=== PATIENT | female | born 1965 | race Caucasian/White ===

== ENCOUNTER 2017-06-29 14:30 | Emergency (ER) | payer BC ==
[~2017-06-29] VITALS: Ht 170.2 cm; Wt 65.8 kg
[~2017-06-29 14:30] MED LIST: CIPROFLOXACIN500 M1 PO; TAMSULOSIN HCL0.4 MG PO; ZOLOFT100 MG PO
[2017-06-29] MEDS ORDERED: IBUPROFEN 600600 M1 PO (14:39)
[2017-06-29] MEDS ORDERED: ROPINIROLE HCL2 M1 PO (14:39)
[2017-06-29] MEDS ORDERED: ACETAMINOPHEN325 M1 PO (14:39)
[2017-06-29 15:12] LABS: ABSOLUTE EOSINOPHILS 0.1 thou/uL (0.0-0.7); ABSOLUTE LYMPHOCYTES 1.6 thou/uL (0.8-5.3); ABSOLUTE MONOCYTES 0.3 thou/uL (0.0-1.2); ABSOLUTE NEUTROPHILS 4.8 thou/uL (1.6-8.1); BASOPHILS 0.2 %; HEMATOCRIT 38.7 % (37.0-47.0); HEMOGLOBIN 12.8 gm/dL (12.0-15.0); MCH 28.6 pg (26.0-34.0); MCHC 33.1 g/dL (28.0-37.0); MCV 86.2 fL (80.0-100.0); MONOCYTES 4.5 %; MPV 8.6 fl. (7.2-11.1); NUCLEATED RBCS 0 /100WBC; PLATELET COUNT* 227 thou/uL (150-400); POLYS 70.3 %; RBC 4.49 mil/uL (4.20-5.00); RDW-CV 13.8 % (10.5-14.5); WBC 6.8 thou/uL (4.0-11.0)
[2017-06-29 15:17] LABS: CALCIUM 8.7 mg/dL (8.5-10.1); CREATININE 0.8 mg/dL (0.6-1.3); POTASSIUM 3.5 mmol/L (3.5-5.1)
[2017-06-29 15:22] LABS: ALBUMIN 3.7 g/dL (3.4-5.0); TOTAL BILIRUBIN 0.3 mg/dL (<0.1-1.0); TOTAL PROTEIN 7.7 g/dL (6.4-8.2)
[2017-06-29] MEDS ORDERED: HYDROCODONE-AP1 EAC6 PO (15:52)
[2017-06-29] MEDS ORDERED: MEDROLDOSEPACK PO (16:01)
[2017-06-29 16:06] VITALS: BP 138/78
[2017-06-29 16:23] LABS: ESR (SEDRATE) 9 mm/hr (0-30)
== END 2017-06-29 16:07 | disposition home or self-care (01) ==
LOC: M.ERS 14:30
PROVIDERS: Physician Assistant
DX: M54.2 Cervicalgia (principal); R51 Headache; F41.9 Anxiety disorder, unspecified; Z88.8 Allergy status to other drugs, medicaments and biological substances

== ENCOUNTER 2017-08-04 01:33 | Emergency (ER) | payer BC ==
[~2017-08-04] VITALS: Ht 170.2 cm; Wt 65.8 kg
[~2017-08-04 01:33] MED LIST changes: +ACETAMINOPHEN325 M1 PO; +HYDROCODONE-AP1 EAC6 PO; +IBUPROFEN 600600 M1 PO; +MEDROLDOSEPACK PO; +ROPINIROLE HCL2 M1 PO
[2017-08-04] MEDS ORDERED: ZANAFLEX4 MG PO (01:41)
[2017-08-04] MEDS ORDERED: MOBIC7.5 MG PO (01:42)
[2017-08-04 02:03] LABS: CREATININE 0.9 mg/dL (0.6-1.3); POTASSIUM 4.1 mmol/L (3.5-5.1)
[2017-08-04 02:09] LABS: ABSOLUTE EOSINOPHILS 0.1 thou/uL (0.0-0.7); ABSOLUTE LYMPHOCYTES 2.5 thou/uL (0.8-5.3); ABSOLUTE MONOCYTES 0.6 thou/uL (0.0-1.2); ABSOLUTE NEUTROPHILS 4.5 thou/uL (1.6-8.1); BASOPHILS 0.6 %; EOSINOPHILS 0.9 %; HEMATOCRIT 36.2 % (37.0-47.0); LYMPHOCYTES 32.3 %; MCH 28.3 pg (26.0-34.0); MCHC 33.3 g/dL (28.0-37.0); MCV 85.2 fL (80.0-100.0); MONOCYTES 7.7 %; MPV 8.4 fl. (7.2-11.1); NUCLEATED RBCS 0 /100WBC; PLATELET COUNT* 256 thou/uL (150-400); POLYS 58.5 %; RBC 4.25 mil/uL (4.20-5.00); RDW-CV 13.8 % (10.5-14.5); WBC 7.8 thou/uL (4.0-11.0)
[2017-08-04 02:52] LABS: URINE BILIRUBIN NEGATIVE (Negative); URINE BLOOD 3+ (Negative); URINE COLOR YELLOW; URINE GLUCOSE-RANDOM NEGATIVE (Negative); URINE KETONES NEGATIVE (Negative); URINE LEUKOCYTES-REFLEX NEGATIVE (Negative); URINE NITRITE-REFLEX NEGATIVE (Negative); URINE PROTEIN TRACE (Negative); URINE UROBILINOGEN 0.2 E.U./dl (0.2-1.0)
[2017-08-04 02:56] LABS: URINE CLARITY SL HAZY
[2017-08-04 03:31] LABS: CASTS None Seen /LPF (None Seen); SQUAMOUS 4-10 Moderate /LPF (0-3)
[2017-08-04 03:33] LABS: URINE RBC >20 Many /HPF (0-2); URINE WBC-REFLEX 6-15 Few /HPF (0-5)
[2017-08-04 03:34] LABS: BACTERIA-REFLEX 1-9 Few /HPF (None Seen); CRYSTALS None Seen /LPF (None Seen)
[2017-08-04] MEDS ORDERED: HYDROCODON-ACE1 EAC8 PO (03:40)
[2017-08-04] MEDS ORDERED: FLOMAX0.4 MG PO (03:40)
[2017-08-04 04:21] VITALS: BP 127/91
== END 2017-08-04 03:55 | disposition home or self-care (01) ==
LOC: M.ERS 01:33
PROVIDERS: Emergency Medicine
DX: N20.0 Calculus of kidney (principal); F41.9 Anxiety disorder, unspecified; Z88.8 Allergy status to other drugs, medicaments and biological substances

== ENCOUNTER 2017-08-04 11:51 | Inpatient (IN) | payer BC ==
[~2017-08-04] VITALS: Ht 170.2 cm; Wt 65.8 kg
[~2017-08-04 11:51] MED LIST changes: +FLOMAX0.4 MG PO; +HYDROCODON-ACE1 EAC8 PO; +MOBIC7.5 MG PO; +ZANAFLEX4 MG PO
[2017-08-04 11:58] VITALS: BP 119/74
[2017-08-04 12:32] LABS: URINE BILIRUBIN NEGATIVE (Negative); URINE BLOOD 3+ (Negative); URINE CLARITY CLEAR; URINE COLOR YELLOW; URINE GLUCOSE-RANDOM NEGATIVE (Negative); URINE KETONES TRACE (Negative); URINE LEUKOCYTES-REFLEX NEGATIVE (Negative); URINE NITRITE-REFLEX NEGATIVE (Negative); URINE PROTEIN 1+ (Negative); URINE SPECIFIC GRAVITY 1.015 (1.005-1.030); URINE UROBILINOGEN 0.2 E.U./dl (0.2-1.0)
[2017-08-04 12:36] LABS: CALCIUM 8.8 mg/dL (8.5-10.1); CREATININE 0.9 mg/dL (0.6-1.3); POTASSIUM 3.9 mmol/L (3.5-5.1)
[2017-08-04 12:40] LABS: BACTERIA-REFLEX 1-9 Few /HPF (None Seen); MUCUS >6 Heavy strn/LPF (None Seen); SQUAMOUS 0-3 Few /LPF (0-3); URINE RBC >20 Many /HPF (0-2); URINE WBC-REFLEX 0-5 Rare /HPF (0-5)
[2017-08-04 12:41] LABS: CRYSTALS None Seen /LPF (None Seen); HYALINE CASTS 0-3 Few /LPF (None Seen)
[2017-08-04 15:09] VITALS: BP 116/68
[2017-08-04 16:32] VITALS: BP 136/86
--- NOTE | 2017-08-04 18:49 | NUR ---
PATIENT REMAINED ALERT AND ORIENTED X'S 4. VITAL SIGNS AND SPO2 STABLE. IV CLEAN FLUIDS INFUSING. TOLERATED DIET, NO NAUSEA AND VOMITING. STRAINER, HAT, CUP, BIO BAG IN RESTROOM. NPO AFTER MIDNIGHT. PAIN WELL CONTROLLED PAIN MEDS. COMPLETED HOURLY ROUNDING, CALL LIGHT WITHIN REACH. WILL CONTINUE TO MONITOR.
[2017-08-04 20:45] VITALS: BP 111/63
[2017-08-05 00:22] LABS: URINE BILIRUBIN NEGATIVE (Negative); URINE BLOOD 1+ (Negative); URINE CLARITY CLEAR; URINE COLOR YELLOW; URINE GLUCOSE-RANDOM NEGATIVE (Negative); URINE KETONES NEGATIVE (Negative); URINE LEUKOCYTES-REFLEX NEGATIVE (Negative); URINE NITRITE-REFLEX NEGATIVE (Negative); URINE PROTEIN NEGATIVE (Negative); URINE SPECIFIC GRAVITY 1.025 (1.005-1.030); URINE UROBILINOGEN 0.2 E.U./dl (0.2-1.0)
[2017-08-05 01:29] LABS: CASTS None Seen /LPF (None Seen); MUCUS 0-3 Light strn/LPF (None Seen); SQUAMOUS >10 Many /LPF (0-3)
[2017-08-05 01:30] LABS: CRYSTALS None Seen /LPF (None Seen); URINE WBC-REFLEX 0-5 Rare /HPF (0-5)
[2017-08-05 04:23] LABS: CALCIUM 8.4 mg/dL (8.5-10.1); POTASSIUM 4.6 mmol/L (3.5-5.1)
--- NOTE | 2017-08-05 05:05 | NUR ---
PATIENT ALERT AND ORIENTED. VITALS STABLE. RA. NPO. STRAINING ALL URINE. PAIN CONTROLLED WITH FENTANYL. DENIES NAUSEA. FLUIDS INFUSING PER ORDER. UP INDEPENDENTLY. MILK OF MAG GIVEN AT HS. HOURLY ROUNDS. NURSING WILL CONTINUE TO MONITOR.
[2017-08-05 08:35] VITALS: BP 121/62
--- NOTE | 2017-08-05 16:32 | NUR ---
PATIENT REMAINS ALERT AND ORIENTED. PAIN CONTROLLED WITH IV FENTANYL. ZOFRAN FOR NAUSEA. AMBULATES AD NESHA. RA. VSS. STRAINING URINE. GOOD URINE OUTPUT. WILL BE NPO AFTER MIDNIGHT FOR POSSIBLE SURGICAL INTERVENTION TOMORROW. CALL LIGHT WITHIN REACH. WILL CONTINUE TO MONITOR.
[2017-08-05 17:39] VITALS: BP 120/72
[2017-08-05 20:40] VITALS: BP 110/64
--- NOTE | 2017-08-06 04:55 | NUR ---
PATIENT ALERT AND ORIENTED. VITALS STABLE. RA. NEW IV PLACED IN RIGHT FOREARM. FLUIDS INFUSING PER ORDER. NPO. PAIN CONTROLLED WITH FENTANYL. ZOFRAN GIVEN PROPHYLACTICALLY. UP INDEPENDENTLY. SHOWERED AT HS. PATIENT HAS NOT PASSED STONE. REPORTS INCREASED LOWER ABDOMINAL PAIN AND BURNING WITH URINATION STATING "I FEEL THOUGH IM ABOUT TO PASS THE STONE." HOURLY ROUNDS. NURSING WILL CONTINUE TO MONITOR.
[2017-08-06 08:05] VITALS: BP 122/71
[2017-08-06 08:18] VITALS: BP 122/71
[2017-08-06] MEDS ORDERED: HYDROCODON-ACE1 EAC8 PO (11:35)
[2017-08-06] MEDS ORDERED: PHENERGAN 25 MG25 M1 PO (11:35)
--- NOTE | 2017-08-06 12:00 | NUR ---
MET WITH PT. SHE WAS ALERT AND ORIENTED. ANTICIPATING SURGERY THIS AFTERNOON. STATED SHE IS INDEPENDENT AT HOME. SHE IS SELF EMPLOYED. SON LIVES WITH HER. HER FAMILY IS SUPPORTIVE. SHE DOES NOT USE DME. SHE WILL NOT HAVE ANY DISCHARGE NEEDS.
[2017-08-06 15:20] VITALS: BP 122/71
[2017-08-06] MEDS ORDERED: MIRALAX17 GM PO (15:48)
[2017-08-06 15:50] VITALS: BP 118/69
[2017-08-06] MEDS ORDERED: LEVSIN0.125 MG PO (15:57)
[2017-08-06] MEDS ORDERED: PHENAZOPYRIDIN200 M2 PO (15:58)
[2017-08-06 22:05] VITALS: BP 117/69
[2017-08-07 00:17] VITALS: BP 122/71
[2017-08-07 04:02] VITALS: BP 116/73
--- NOTE | 2017-08-07 05:13 | NUR ---
PATIENT ALERT AND ORIENTED. VITLALS STABLE. RA. PAIN CONTROLLED WITH PO MEDICATION. IV SALINE LOCKED. UP INDEPENDENTLY. DENIES NAUSEA. HOURLY ROUNDS. INSTRUCTED TO CALL FOR ASSISTANCE. NURSING WILL CONTINUE TO MONITOR.
[2017-08-07 08:54] VITALS: BP 141/86
[2017-08-07 16:00] VITALS: BP 131/87
[2017-08-07 17:06] VITALS: BP 122/71
--- NOTE | 2017-08-07 18:41 | NUR ---
ASSUMED CARES OF PT [id number]. PT IN BED,BED IN LOW LOCKED POSITION. CALL BUTTON AND PERSONAL ITEMS IN PT REACH. PT A&O X4, HRRR PER AUSCULTATION, LCTAB, UP INDEPENDENT TO BATHROOM, AFEBRILE, PERRLA, SKIN INTACT. RIGHT FA IV PATENT TO FLUSH/SALINE LOCKED. VSS ON RA. PAIN CONTROLLED WITH TORADOL AND TYLENOL. PT CLEARED FOR DISCHARGE. IV REMOVED. PT EDUCATED ON ALL DISCHARGE INSTRUCTIONS. PRESCRIPTIONS GIVEN AND EDUCATION CARE PLANS PROVIDED AND SIGNED. PT STABLE, TALKATIVE, SMILING AT DISCHARGE. PT ESCORTED VIA WC BY NURSING STAFF TO CAR WITH FRIEND TO BE DISCHARGED TO HOME. STROKE EDUCATION PROVIDED. QUESTIONS ANSWSERED. HOURLY ROUNDING COMPLETED. DISCHARGE COMPLETED AT 1804.
[2017-08-07 18:46] VITALS: BP 122/71
--- NOTE | 2017-08-13 11:05 | OP ---
[facility] [address] [place] [address] OPERATIVE REPORT Name: ROSSJHONNY MARICRUZ Room: [address] [place] .R.#: [id number] Admission: 08/04/17 Attend Phys: Tricia Hoang Discharge: 08/07/17 Date of : 69 Report #: [id number] THIS REPORT FOR: //name// CC: Fran Delvalle DATE OF SERVICE: 08/06/2017 PREOPERATIVE DIAGNOSIS: Left ureteral stone. POSTOPERATIVE DIAGNOSIS: Left ureteral stone. PROCEDURE: Cystourethroscopy, left retrograde pyelogram, left ureteroscopy, basket extraction of stone and left ureteral stent (6 x 26). SURGEON: Brooklynn Yi M.D. ANESTHESIA: General. ESTIMATED BLOOD LOSS: None. COMPLICATIONS: None. SPECIMEN: Stone. INDICATIONS: The patient is a 52-year-old female who presented with a 3 mm left proximal stone. She has failed to pass this and continues to have pain. Options were discussed and she wished to proceed with ureteroscopy. Risks of procedure were discussed including but not limited to infection, bleeding, injury to the urethra, bladder or ureter, need for secondary procedures, stent pain, cardiopulmonary complications. She voiced understanding and wished to proceed. DESCRIPTION OF PROCEDURE: After informed consent was obtained, the patient was taken back to the operative suite and placed supine after induction of general anesthesia, she was placed in dorsal lithotomy position, genitalia prepped and draped in standard fashion. Rigid cystoscopy was performed. Bladder mucosa appeared normal. There were no mucosal lesions. Ureteral orifices were orthotopic in position. Retrograde was performed on the left side with a cone-tipped catheter. This revealed a possible filling defect in the mid ureter with some proximal mild hydroureteronephrosis. Sensor wire was threaded up into the kidney. The bladder was drained and the scope was removed. A rigid ureteroscope was introduced alongside the wire and easily passed into the left UO and into the distal ureter. The stone was encountered in the mid ureter and was quite small and did not require any lithotripsy. This was basketed with a 0 tip nitinol basket and extracted without any difficulty [place] [address] OPERATIVE REPORT Name: JHONNY HAWKINS Room: [address] [place] [facility].#: [id number] Admission: 08/04/17 Attend Phys: Tricia Hoang Discharge: 08/07/17 Date of : 69 Report #: [id number] Retrograde was again performed to delineate the collecting system for stent placement. The wire was backloaded through the cystoscope and a 6-Arabic x 26 cm double-J stent was placed over the wire. Good curl was seen within the renal pelvis and good curl was seen within the bladder. Bladder was then drained, scope was removed. A 5 mL of lidocaine jelly were placed per urethra for local anesthesia. She was awoken, extubated and taken to recovery in satisfactory condition. She will be dismissed back to the floor and home later if pain is controlled. She will follow up with me in a week for stent removal. <ELECTRONICALLY SIGNED> By: Brooklynn Yi MD 08/13/17 1105 [id number] Yi MD /nt
[2017-08-15 18:07] LABS: STONE CA OXALATE MONOHYDRATE 92 % (()); STONE COLOR Tan (()); STONE SIZE 2x2x2 mm (())
== END 2017-08-07 18:04 | disposition home or self-care (01) | DRG 670 ==
LOC: M.ERS 11:51 → M.TBA-ER 13:39 → M.ORTHSURG 13:39 → M.TBA 08-07 06:46 → M.ORTHSURG 08-07 06:46
PROVIDERS: Emergency Medicine Emergency Medical Services; ADMIT Internal Medicine
PROC: 0T778DZ Dilation of Left Ureter with Intraluminal Device, Via Natural or Artificial Opening Endoscopic (ICD-10-PCS; principal; 2017-08-06)
PROC: 0TC78ZZ Extirpation of Matter from Left Ureter, Via Natural or Artificial Opening Endoscopic (ICD-10-PCS; principal; 2017-08-06)
PROC: BT1F1ZZ Fluoroscopy of Left Kidney, Ureter and Bladder using Low Osmolar Contrast (ICD-10-PCS; principal; 2017-08-06)
DX: N21.1 Calculus in urethra (principal); F41.9 Anxiety disorder, unspecified; N28.89 Other specified disorders of kidney and ureter; R51 Headache; M54.2 Cervicalgia; Z90.710 Acquired absence of both cervix and uterus; Z79.899 Other long term (current) drug therapy; Z88.8 Allergy status to other drugs, medicaments and biological substances

== ENCOUNTER 2017-08-13 23:47 | Emergency (ER) | payer BC ==
[~2017-08-13] VITALS: Ht 170.2 cm; Wt 64.9 kg
[~2017-08-13 23:47] MED LIST changes: +LEVSIN0.125 MG PO; +MIRALAX17 GM PO; +PHENAZOPYRIDIN200 M2 PO; +PHENERGAN 25 MG25 M1 PO
[2017-08-14 00:24] LABS: ABSOLUTE BASOPHILS 0.1 thou/uL (0.0-0.2); ABSOLUTE EOSINOPHILS 0.2 thou/uL (0.0-0.7); ABSOLUTE LYMPHOCYTES 2.3 thou/uL (0.8-5.3); ABSOLUTE MONOCYTES 0.6 thou/uL (0.0-1.2); ABSOLUTE NEUTROPHILS 3.3 thou/uL (1.6-8.1); BASOPHILS 0.9 %; EOSINOPHILS 3.1 %; HEMATOCRIT 39.2 % (37.0-47.0); HEMOGLOBIN 12.9 gm/dL (12.0-15.0); LYMPHOCYTES 36.2 %; MCH 28.2 pg (26.0-34.0); MCHC 32.8 g/dL (28.0-37.0); MCV 86.2 fL (80.0-100.0); MPV 8.3 fl. (7.2-11.1); NUCLEATED RBCS 0 /100WBC; PLATELET COUNT* 262 thou/uL (150-400); POLYS 50.8 %; RBC 4.55 mil/uL (4.20-5.00); WBC 6.4 thou/uL (4.0-11.0)
[2017-08-14 00:29] LABS: ANION GAP 4 mmol/L (7-16); BUN 24 mg/dL (7-18); CHLORIDE 104 mmol/L (98-107); CO2 31 mmol/L (21-32); CREATININE 0.9 mg/dL (0.6-1.3); GLUCOSE 110 mg/dL (70-99); POTASSIUM 4.3 mmol/L (3.5-5.1); SODIUM 139 mmol/L (136-145)
[2017-08-14 00:39] LABS: ALBUMIN 3.6 g/dL (3.4-5.0); ALKALINE PHOSPHATASE 108 U/L (46-116); NT-PRO BRAIN NAT PEPTIDE 22 pg/mL (<300); SGOT 19 U/L (15-37); SGPT 50 U/L (30-65); TOTAL BILIRUBIN 0.2 mg/dL (<0.1-1.0); TOTAL PROTEIN 7.3 g/dL (6.4-8.2); TROPONIN-I LEVEL <0.06 ng/mL (<0.06)
[2017-08-14 00:40] LABS: PROTIME 9.7 Seconds (9.20-11.50)
[2017-08-14] MEDS ORDERED: ENDOCET 5-3251 EACH PO (03:22)
[2017-08-14] MEDS ORDERED: CARAFATE 1 GM TA1 G1 PO (03:22)
[2017-08-14 03:50] VITALS: BP 121/97
--- NOTE | 2017-08-14 09:26 | EKG ---
[place] [address] ELECTROCARDIOGRAM REPORT Name: ROSSJHONNY ALCANTARA Room: [facility]#: [id number] Admission: 08/13/17 Attend Phys: Discharge: 08/14/17 Date of : 69 Report #: [id number] THIS REPORT FOR: //name// [facility] ED Test Date: 2017-08-13 Test Time: 23:54:05 Pat Name: JHONNY HAWKINS Department: Room: Gender: F [employer]: TIFFANI Bryant : 1965 Requested By: Ariadna Paula Order Number: [id number] MD: Anthony Charles Measurements Intervals [place] Rate: 71 P: 23 OK: 136 QRS: 56 QRSD: 92 T: 52 QT: 395 QTc: 430 Interpretive Statements Sinus rhythm No previous ECG available for comparison Electronically Signed On 08-14-2017 9:26:46 CDT by Anthony Charles [email or web address] <ELECTRONICALLY SIGNED> By: Anthony Charles MD, [facility] 08/14/17 0926 [id number] [id number] Anthony Charles MD, FACC /EPI
== END 2017-08-14 03:51 | disposition home or self-care (01) ==
LOC: M.ERS 23:47
PROVIDERS: Emergency Medicine
DX: R07.89 Other chest pain (principal); F41.9 Anxiety disorder, unspecified; Z90.710 Acquired absence of both cervix and uterus; Z98.890 Other specified postprocedural states; Z87.442 Personal history of urinary calculi; Z88.8 Allergy status to other drugs, medicaments and biological substances

== ENCOUNTER → 2017-08-18 | Outpatient (CLI) | payer BC ==
[~2017-08-18] MED LIST changes: +CARAFATE 1 GM TA1 G1 PO; +ENDOCET 5-3251 EACH PO
== END ==
LOC: M.ULTRA 11:14
DX: N28.1 Cyst of kidney, acquired (principal); N81.10 Cystocele, unspecified; N81.6 Rectocele

== ENCOUNTER → 2017-09-11 | Outpatient (CLI) | payer BC ==
[2017-09-11 14:00] LABS: CREATININE 0.8 mg/dL (0.6-1.3)
== END ==
LOC: M.LAB 13:13
PROVIDERS: Urology
DX: N28.1 Cyst of kidney, acquired (principal)

== ENCOUNTER → 2017-09-15 | Outpatient (CLI) | payer BC | LOC: M.CT 09:05 | DX: N28.1 Cyst of kidney, acquired (principal) ==

== ENCOUNTER → 2017-09-17 | Outpatient (CLI) | payer BC ==
[2017-09-17 22:12] LABS: URINE SODIUM 89 (39-258); URINE SODIUM-mEq/L 162 mmol/L (Not Estab.)
[2017-09-18 11:08] LABS: URINE CALCIUM 124.3 mg/24 hr (100.0-300.0); URINE CALCIUM-mg/dl 22.6 mg/dL (Not Estab.)
== END ==
LOC: M.LAB 11:05
PROVIDERS: Urology
DX: N81.10 Cystocele, unspecified (principal); N81.6 Rectocele; N28.1 Cyst of kidney, acquired; N20.1 Calculus of ureter

== ENCOUNTER 2018-06-21 17:14 | Emergency (ER) | payer BC ==
[~2018-06-21] VITALS: Ht 170.2 cm; Wt 65.8 kg
[2018-06-21 17:29] VITALS: BP 133/78
[2018-06-21] MEDS ORDERED: SERTRALINE HCL25 M1 PO (17:32)
[2018-06-21] MEDS ORDERED: DIAZEPAM 2MG TAB2 MG PO (17:33)
[2018-06-21] MEDS ORDERED: BUSPIRONE HCL10 MG PO (17:33)
[2018-06-21] MEDS ORDERED: IBU600 MG PO (17:49)
[2018-06-21] MEDS ORDERED: ZANAFLEX4 MG PO (17:49)
== END 2018-06-21 18:16 | disposition home or self-care (01) ==
LOC: M.ERS 17:14
DX: S46.812A Strain of other muscles, fascia and tendons at shoulder and upper arm level, left arm, initial encounter (principal); F41.9 Anxiety disorder, unspecified; Z90.710 Acquired absence of both cervix and uterus; Z87.442 Personal history of urinary calculi; Z88.8 Allergy status to other drugs, medicaments and biological substances; Z98.890 Other specified postprocedural states; X50.1XXA Overexertion from prolonged static or awkward postures, initial encounter; Y93.89 Activity, other specified; Y92.89 Other specified places as the place of occurrence of the external cause; Y99.8 Other external cause status

== ENCOUNTER → 2020-02-21 | Outpatient (CLI) | payer OTHER ==
[~2020-02-21] MED LIST changes: +BUSPIRONE HCL10 MG PO; +DIAZEPAM 2MG TAB2 MG PO; +IBU600 MG PO; +SERTRALINE HCL25 M1 PO
--- NOTE | 2020-02-21 13:22 | 2DMMODE ---
[place] [address] 2 D/M-MODE ECHOCARDIOGRAM Name: JHONNY HAWKINS Room: [facility]#: [id number] Admission: 02/21/20 Attend Phys: Anthony Charles MD Discharge: Date of : 69 Date of Service: 02/21/20 1321 Report #: [id number] THIS REPORT FOR: cc: Jarred Garcia Adam J DO Blick, David R. MD [facility] ~ APPROVED REPORT Study performed: 02/21/2020 10:21:53 EXAM: Comprehensive 2D, Doppler, and color-flow Echocardiogram Patient Location: Out-Patient BSA: 1.83 HR: 60 bpm BP: 134/68 mmHg Other Information Study Quality: Good Indications Palpitations 2D Dimensions IVSd: 8.94 (7-11mm) LVOT Diam: 19.36 (18-24mm) LVDd: 44.76 mm PWd: 8.80 (7-11mm) Ascending Ao: 24.37 (22-36mm) LVDs: 23.92 (25-40mm) Aortic Root: 27.76 mm Volumes Left Atrial Volume (Systole) LA ESV Index: 16.40 mL/m2 Aortic Valve AoV Peak Donny.: 1.10 m/s AO Peak Gr.: 4.84 mmHg LVOT Max P.20 mmHg AO Mean Gr.: 2.73 mmHg LVOT Mean P.31 mmHg LVOT Max V: 1.14 m/s AO V2 VTI: 26.45 cm LVOT Mean V: 0.69 m/s TESSY (VTI): 2.82 cm2 LVOT V1 VTI: 25.36 cm Mitral Valve E/A Ratio: 1.65 [place] [address] 2 D/M-MODE ECHOCARDIOGRAM Name: JHONNY HAWKINS Room: [facility]#: [id number] Admission: 02/21/20 Attend Phys: Anthony Charles MD Discharge: Date of : 69 Date of Service: 02/21/20 1321 Report #: [id number] MV Decel. Time: 165.76 ms MV E Max Donny.: 0.77 m/s MV PHT: 48.07 ms MVA (PHT): 4.58 cm2 TDI E/Lateral E': 5.13 E/Medial E': 5.92 Medial E' Donny.: 0.13 m/s Lateral E' Donny.: 0.15 m/s Pulmonary Valve PV Peak Donny.: 0.85 m/s PV Peak Gr.: 2.87 mmHg Tricuspid Valve RAP Estimate: 5.00 mmHg TR Peak Gr.: 14.67 mmHg RVSP: 19.67 mmHg PA Pressure: 19.67 mmHg Left Ventricle The left ventricle is normal size. There is normal LV segmental wall motion. There is normal left ventricular wall thickness. Left ventricular systolic function is normal. The left ventricular ejection fraction is within the normal range. LVEF is 55-60%. The left ventricular diastolic function is normal. Right Ventricle The right ventricle is normal size. The right ventricular systolic function is normal. Atria The left atrium size is normal. The right atrium size is normal. Aortic Valve The aortic valve is normal in structure. No aortic regurgitation is present. There is no aortic valvular stenosis. Mitral Valve The mitral valve is normal in structure. trace mitral regurgitation. No evidence of mitral valve stenosis. Tricuspid Valve The tricuspid valve is normal in structure. Mild tricuspid regurgitation. [place] [address] 2 D/M-MODE ECHOCARDIOGRAM Name: JHONNY HAWKINS Room: [facility]#: [id number] Admission: 02/21/20 Attend Phys: Anthony Charles MD Discharge: Date of : 69 Date of Service: 02/21/20 1321 Report #: [id number] The pulmonary valve is normal in structure. Mild pulmonic regurgitation. Great Vessels The aortic root is normal in size. IVC is normal in size and collapses >50% with inspiration. Pericardium There is no pericardial effusion. <Conclusion> Left ventricular systolic function is normal. The left ventricular ejection fraction is within the normal range. <ELECTRONICALLY SIGNED> By: Anthony Charles MD, FACC 02/21/20 132 20 20 Anthony Charles MD, FACC /INF
== END ==
LOC: M.CRD 10:00
PROVIDERS: ATTEND Internal Medicine Cardiovascular Disease
DX: I08.8 Other rheumatic multiple valve diseases (principal); R00.2 Palpitations

== ENCOUNTER → 2020-04-20 | Outpatient (CLI) | payer OTHER | LOC: M.CT 10:57 | PROVIDERS: ATTEND Internal Medicine Cardiovascular Disease | DX: Z13.6 Encounter for screening for cardiovascular disorders (principal) ==

== ENCOUNTER 2021-04-16 14:53 | Emergency (ER) | payer OTHER ==
[~2021-04-16] VITALS: Ht 170.2 cm; Wt 70.3 kg
[2021-04-16] MEDS ORDERED: PROGESTERONE200 MG PO (15:17)
[2021-04-16 15:47] LABS: INFLUENZA A ANTIGEN Negative (Negative)
[2021-04-16 15:50] LABS: URINE BILIRUBIN NEGATIVE (Negative); URINE BLOOD 1+ (Negative); URINE CLARITY CLEAR; URINE COLOR YELLOW; URINE GLUCOSE-RANDOM NEGATIVE (Negative); URINE KETONES TRACE (Negative); URINE LEUKOCYTES-REFLEX NEGATIVE (Negative); URINE NITRITE-REFLEX NEGATIVE (Negative); URINE PROTEIN NEGATIVE (Negative); URINE SPECIFIC GRAVITY >= 1.030 (1.005-1.030); URINE UROBILINOGEN 0.2 E.U./dl (0.2-1.0)
[2021-04-16 16:15] LABS: BACTERIA-REFLEX None Seen /HPF (None Seen); CASTS None Seen /LPF (None Seen); CRYSTALS None Seen /LPF (None Seen); SQUAMOUS 0-3 Few /LPF (0-3); URINE RBC None Seen /HPF (0-2); URINE WBC-REFLEX None Seen /HPF (0-5)
[2021-04-16] MEDS ORDERED: ZOFRAN ODT4 MG PO (16:32)
[2021-04-16] MEDS ORDERED: TESSALON PERLE100 MG PO (16:32)
[2021-04-16] MEDS ORDERED: PROAIR HFA8.5 GM INH (16:33)
[2021-04-16 16:45] VITALS: BP 131/89
== END 2021-04-16 16:46 | disposition home or self-care (01) ==
LOC: M.ERS 14:53
PROVIDERS: Family Medicine; Nurse Practitioner Family
DX: U07.1 COVID-19 (principal); J10.1 Influenza due to other identified influenza virus with other respiratory manifestations; F41.9 Anxiety disorder, unspecified; Z90.710 Acquired absence of both cervix and uterus; Z79.899 Other long term (current) drug therapy; Z88.8 Allergy status to other drugs, medicaments and biological substances